=== PATIENT | female | born 1990 | race Caucasian/White ===

== ENCOUNTER 2016-11-02 00:42 | Emergency (ER) | payer MEDICAID ==
[2016-11-02 01:47] LABS: APPEARANCE,URINE CLEAR; BILIRUBIN,URINE NEGATIVE (NEGATIVE); GLUCOSE, URINE NEGATIVE (NEGATIVE); KETONES,URINE NEGATIVE (NEGATIVE); LEUKOCYTE ESTERASE,URINE NEGATIVE (NEGATIVE); NITRITE,URINE NEGATIVE (NEGATIVE); PROTEIN,URINE NEGATIVE (NEGATIVE); URINE SPECIFIC GRAVITY 1.009; UROBILINOGEN,URINE NEGATIVE mg/dL (<2.0)
--- NOTE | 2016-11-02 02:33 | ER Document Report ---
ED GI/ - General Chief Complaint: Vag Bleeding, +preg <12wks Stated Complaint: VAGINAL BLEEDING Time Seen by Provider: 11/02/16 02:32 Mode of Arrival: Ambulatory Information source: Patient Notes: 26 yo female with hx IBS, exp lap age 16 to look for endometriosis ( negative), c/o vaginal bleeding after sex tonight at 0030. mild cramping. No urinary symptoms. PCP: [facility], [facility] October 04. Subchorionic hemorrhage found at 8 weeks. TRAVEL OUTSIDE OF THE [place] IN LAST 30 DAYS: No - Related Data Allergies/Adverse Reactions: No Known Allergies Allergy (Verified 11/02/16 00:54) Home Medications: Current Home Medications No Home Medications 11/02/16 [History] Past Medical History - General Information source: Patient - Social History Smoking Status: Never Smoker Frequency of alcohol use: None Drug Abuse: None Lives with: Spouse/Significant other Family History: Reviewed & Not Pertinent - Medical History Notes: see above Renal/ Medical History: Denies: Hx Peritoneal Dialysis Past Surgical History: Reports: Hx Dilation and Curettage Review of Systems - Review of Systems Constitutional: No symptoms reported EENT: No symptoms reported Cardiovascular: No symptoms reported Respiratory: No symptoms reported Gastrointestinal: No symptoms reported Genitourinary: No symptoms reported Female Genitourinary: See HPI Musculoskeletal: No symptoms reported Skin: No symptoms reported Hematologic/Lymphatic: No symptoms reported Neurological/Psychological: No symptoms reported Physical Exam - Vital signs Vitals: Temp Pulse Resp BP Pulse Ox 97.9 F 87 18 126/65 H 100 11/02/16 00:54 11/02/16 00:54 11/02/16 00:54 11/02/16 00:54 11/02/16 00:54 Interpretation: Normal - General General appearance: Appears well, Alert In distress: None - HEENT Head: Normocephalic, Atraumatic Eyes: Normal Pupils: PERRL Neck: Supple. No: Lymphadenopathy - Respiratory Respiratory status: No respiratory distress Chest status: Nontender Breath sounds: Normal Chest palpation: Normal - Cardiovascular Rhythm: Regular Heart sounds: Normal auscultation Murmur: No - Abdominal Inspection: Normal Distension: No distension Bowel sounds: Normal Tenderness: Nontender Organomegaly: Mass - fundus above symphysis pubis, FHT 161 - Genitourinary External exam: Other - old thin blood Speculum exam: Cervix closed, Other - pedunculated tissue ovid/kidney krishna shaped, firm, mobile outsid ethe cervix Vaginal bleeding: Mild - Back Back: Normal, Nontender. No: Deformity/step-off - Extremities General upper extremity: Normal inspection, Nontender, Normal color, Normal ROM , Normal temperature General lower extremity: Normal inspection, Nontender, Normal color, Normal ROM , Normal temperature, Normal weight bearing. No: Christel's sign - Neurological Neuro grossly intact: Yes Cognition: Normal Orientation: AAOx4 Kenn Coma Scale Eye Opening: Spontaneous Kenn Coma Scale Verbal: Oriented Cubero Coma Scale Motor: Obeys Commands Kenn Coma Scale Total: 15 Speech: Normal Motor strength normal: LUE, RUE, LLE, RLE Sensory: Normal - Psychological Associated symptoms: Normal affect, Normal mood - Skin Skin Temperature: Warm Skin Moisture: Dry Skin Color: Normal Course - Re-evaluation Re-evalutation: 11/02/16 02:48 FHT 161 at bedside. 11/02/16 04:56 dr pizarro here to see pt, stated she does not need the rhogam since she got dose on october 04. the cervical pedunculated polyp was sent to lab for pathology. US viable IUP, 13 weeks, dr. pizarro wants her to f/u in office on friday. If she can stand and not bleed near 7 am she can go home. 11/02/16 06:39 11/02/16 06:53 In the room vital signs are stable no dizziness and no bleeding so according to what Dr. Lopez wanted she can go home. - Vital Signs Vital signs: Temp Pulse Resp BP Pulse Ox 97.9 F 87 18 126/65 H 100 11/02/16 00:54 11/02/16 00:54 11/02/16 00:54 11/02/16 00:54 11/02/16 00:54 - Laboratory Result Diagrams: 11/02/16 03:05 Laboratory results interpreted by me: 11/02/16 11/02/16 01:22 03:05 WBC 12.7 H Absolute Neutrophils 9.5 H Urine Blood LARGE H Urine HCG, Qual POSITIVE H Discharge - Discharge Clinical Impression: Vaginal bleeding, viable 13 week IUP, cervical polyp removed dr. pizarro Condition: Good Disposition: HOME, SELF-CARE Instructions: Acetaminophen, ([facility]), Vaginal Bleeding ([facility]) Additional Instructions: call and schedule appointment with dr. charles at her office for friday at 3 pm to er if worse no sex or strenuous exercise for 2 weeks do not put anything in your vagina Please complete the patient satisfaction survey if you get one, and return it.. If you do not receive a survey, then you can go to the [facility] website, [email or web address] and place your comments about your very good care. Thank you very much. It was a pleasure being your medical provider today. Referrals: ALICIA LAY MD [ACTIVE STAFF] - 11/08/16 (3 pm appointment)
[2016-11-02 03:31] LABS: ABSOLUTE BASOPHILS # (AUTO) 0.1 10^3/uL (0.0-0.2); ABSOLUTE EOSINOPHILS # (AUTO) 0.1 10^3/uL (0.0-0.6); ABSOLUTE LYMPHOCYTES (AUTO) 1.8 10^3/uL (0.5-4.7); ABSOLUTE MONOCYTES (AUTO) 1.2 10^3/uL (0.1-1.4); ABSOLUTE NEUT (AUTO) 9.5 10^3/uL (1.7-8.2); BASOPHILS % (AUTO) 0.6 % (0-2); EOSINOPHILS % (AUTO) 0.6 % (0-6); HEMATOCRIT 37.2 % (36.0-47.0); HGB HCT DIFFERENCE 1.8; LYMPHOCYTES % (AUTO) 14.5 % (13-45); MEAN CORPUSCULAR HEMOGLOBIN 32.7 pg (27.0-33.4); MEAN CORPUSCULAR VOLUME 94 fl (80-97); MONOCYTES % (AUTO) 9.5 % (3-13); RED BLOOD COUNT 3.98 10^6/uL (3.72-5.28); RED CELL DISTRIBUTION WIDTH 13.1 % (11.5-14.0); SEGMENTED NEUTROPHILS % (AUTO) 74.8 % (42-78); WHITE BLOOD COUNT 12.7 10^3/uL (4.0-10.5)
--- NOTE | 2016-11-02 04:53 | RADIOLOGY REPORT (SQ) ---
EXAM DESCRIPTION: U/S OB TRANSVAGINAL W/O DOP COMPLETED DATE/TIME: 11/02/2016 3:36 am REASON FOR STUDY: 12 weeks 5 days COMPARISON: None. TECHNIQUE: Transabdominal static and realtime grayscale images acquired of the pelvis. Additional se lected spectral and color Doppler images recorded. All images stored on PACs. bHCG: Not available. LIMITATIONS: None. FINDINGS: FETUS: Living intrauterine . EGA: 12 weeks 5 days based on crown-rump length of 6.3 cm ELSIE: 05/12/2017. FHR: 165 beats per minute. SUBCHORIONIC BLEED: No. SIZE OF BLEED: Not applicable. UTERUS: No masses. No anomalies. CERVICAL LENGTH: 3.5 cm Closed. RIGHT ADNEXA: Ovary not identified. No adnexal free fluid. No adnexal masses. LEFT ADNEXA: Ovary not identified. No adnexal free fluid. No adnexal masses. FREE FLUID: None. OTHER: No other significant finding. IMPRESSION: LIVING INTRAUTERINE . EGA 12 weeks 5 days Trimester of : First - 0 to 13 weeks. TECHNICAL DOCUMENTATION: JOB ID: [id number] [employer]- All Rights Reserved
--- NOTE | 2016-11-02 06:13 | CONSULTATION REPORT E ---
Consultation Report NAME: DARELL CROWE : 1990 AGE: 26Y DATE: 11/02/2016 TO: ALICIA LAY M.D. FROM: Lc ZAMAN Requesting Physician CHIEF COMPLAINT: Called to see patient for vaginal bleeding in . This is a 26-year-old, G3, P0-0-2-0 now at 12+ weeks gestation who presented to the emergency room with significant amount of postcoital bleeding. PAST MEDICAL HISTORY: Irritable bowel syndrome. PAST SURGICAL HISTORY: Laparoscopy for endometriosis which was negative. OBSTETRIC HISTORY: One miscarriage and 1 termination of . HABITS: Negative. PHYSICAL EXAMINATION: VITALS: Blood pressure 126/65, temperature 97.9, heart rate 87. GENERAL: The patient appears comfortable and in no acute distress. ABDOMEN: Soft and nontender. GENITOURINARY: Vagina has blood in the vault. On speculum exam, there is a pedunculated polyp hanging from the cervix with an approximately 2 to 3 mm thick stalk. The polyp was grasped with a sponge stick and twisted. Silver nitrate was treated at the base of this. Pressure was then held and hemostasis observed. The patient tolerated this well. Prior to this, ultrasound had been obtained which showed a 12-week 5-day intrauterine with no subchorionic hemorrhage. The patient's blood type is Rh negative and she had received RhoGAM a few weeks ago. Her CBC was normal without evidence of anemia. IMPRESSION: Viable intrauterine with cervical polyp, now status post polypectomy. PLAN: Polyp is sent for pathology to assure that there is no hyperplastic or he neoplastic process present. The patient was instructed to be on pelvic rest for the next 2 weeks. She also is not to do any heavy activity. We will watch her in the emergency room for 2 hours and discharge her home if there is no bleeding within that time period. She will follow up with me in the clinic in 1 week, where we can review pathology. Bleeding precautions, miscarriage precautions were given. DICTATING PHYSICIAN: ALICIA LAY M.D. [id number] PHY#: [id number] ID: [id number] JOB#: [id number] ACCT: [id number] cc:ALICIA LAY M.D. >
[2016-11-02 07:03] VITALS: BP 112/63
== END 2016-11-02 06:58 | disposition home or self-care (01) ==
LOC: ER 00:42
DX: O34.41 Maternal care for other abnormalities of cervix, first trimester (principal); N84.1 Polyp of cervix uteri; O20.9 Hemorrhage in early pregnancy, unspecified; Z3A.13 13 weeks gestation of pregnancy
CPT/HCPCS: 36415; 76817; 81001; 81025; 85025; 86900; 86901; 88305; 99285